=== PATIENT | male | born 1970 | race Caucasian/White ===

== ENCOUNTER → 2024-08-21 06:15 | Day surgery (SDC) | payer BC, SELFPAY | LOC: GI 06:15 | PROVIDERS: ATTENDING PHYSICIAN Specialist | DX: Z12.11 Encounter for screening for malignant neoplasm of colon (principal); D12.0 Benign neoplasm of cecum; D12.4 Benign neoplasm of descending colon; K64.8 Other hemorrhoids; Z86.0101 Personal history of adenomatous and serrated colon polyps | CPT/HCPCS: 45380; 88305 ==

== ENCOUNTER → 2024-09-02 16:14 | Outpatient (REF) | payer BC, SELFPAY | LOC: MRI 3T 16:14 | PROVIDERS: ATTENDING PHYSICIAN Specialist | DX: R97.20 Elevated prostate specific antigen [PSA] (principal) | CPT/HCPCS: 72197; A9575 ==

== ENCOUNTER 2025-05-01 06:01 | Day surgery (SDC) | payer BC, SELFPAY ==
[2025-04-20 09:18] LABS: Hematocrit 40.6 % (39.0-52.0); Hemoglobin 14.1 g/dL (13.0-18.0); Mean Corp Hgb Conc. 34.7 g/dL (33.0-37.0); Mean Corpuscular Volume 88.5 fL (80.0-94.0); Platelet Count 154 10^3/uL (130-400); Red Cell Dist. Width 11.9 % (11.5-14.5)
[2025-04-20 09:37] LABS: Blood Urea Nitrogen 17 mg/dl (9-20); Calcium 9.1 mg/dl (8.4-10.2); Carbon Dioxide 29 mmol/L (22-30); Chloride 106 mmol/L (98-107); Glucose 90 mg/dl (70-99); Potassium 4.0 mmol/L (3.5-5.1); Sodium 142 mmol/L (135-145); eGFR > 60.00
[2025-04-20 14:15] VITALS: BMI 25.6
[2025-05-01] VITALS (7 sets, daily range): BP systolic 94–145; BP diastolic 41–93; BMI 25.6
[2025-05-01] MEDS: NORMOSOL-R/PLASMALYTE-A 1000 IV (06:52)
== END 2025-05-01 09:02 | disposition home or self-care (01) ==
LOC: SDS 06:01
PROVIDERS: ATTENDING PHYSICIAN Specialist; FAMILY PHYSICIAN Physician Assistant Medical
DX: N40.1 Benign prostatic hyperplasia with lower urinary tract symptoms (principal); R35.0 Frequency of micturition; N52.1 Erectile dysfunction due to diseases classified elsewhere; R97.20 Elevated prostate specific antigen [PSA]
CPT/HCPCS: 55700; 36415; 76998; 80048; 85027; 88305; 93005

== ENCOUNTER 2025-07-30 05:55 | Day surgery (SDC) | payer BC, SELFPAY ==
[2025-07-30] VITALS (9 sets, daily range): BP systolic 126–151; BP diastolic 68–80; BMI 26.7
[2025-07-30] MEDS: TYLENOL 1000 MG PO (06:28)
[2025-07-30] MEDS: NORMOSOL-R/PLASMALYTE-A 1000 IV (06:28)
[2025-07-30] MEDS: CELEBREX 200 MG PO (06:28)
== END 2025-07-30 09:20 | disposition home or self-care (01) ==
LOC: SDS 05:55
PROVIDERS: ATTENDING PHYSICIAN Orthopaedic Surgery
DX: S83.241A Other tear of medial meniscus, current injury, right knee, initial encounter (principal); X58.XXXA Exposure to other specified factors, initial encounter; M94.261 Chondromalacia, right knee
CPT/HCPCS: 29881